=== PATIENT | female | born 1985 ===

== ENCOUNTER 2022-03-26 15:00 | Inpatient (IN) | payer OTHER ==
[2022-03-26] MEDS ORDERED: MAG HYDROX/AL HYDROX/SIMETH 30 ML CUP PO PRN (15:44)
[2022-03-26] MEDS ORDERED: HALOPERIDOL LACTATE 5 MG/ML 1 ML VIAL IM PRN (15:44)
[2022-03-26] MEDS ORDERED: ACETAMINOPHEN TAB 325 MG TAB PO PRN (15:44)
[2022-03-26] MEDS ORDERED: MAGNESIUM HYDROXIDE 2,400 MG/10 ML CUP PO PRN (15:44)
[2022-03-26] MEDS ORDERED: LORazepam 2 MG/ML INJ IM PRN (15:48)
[2022-03-26] MEDS ORDERED: haloperidoL 5 MG TAB PO PRN (15:48)
[2022-03-26 17:44] VITALS: BP 104/69; PULSE 76; RESP 16; TEMP 97.4
[2022-03-26] MEDS: LORazepam 1 MG TAB PO PRN (21:46)
--- NOTE | 2022-03-27 01:15 | P.MDCNMH ---
History of Present Illness H&P Date: 03/26/22 Chief Complaint: medical eval 36 year old female with chronic anemia patient reports social stresses going through divorce , denies any suicidal or homicidal ideation. she was transferred to us from another facility where she was petitioned court order due to acute psychosis . she denies any medical history or current medical concerns per RN , she is having heavy menestrual bleeding blood work at the other facility , showed microcytic anemia otherwise was unremarkable. patient otherwise asymptomatic admits to smoking but denies drugs or alcohol . Review of Systems Pertinent positives as noted in HPI. All other systems were reviewed and are negative Past Medical History - Past Family History family Family Medical History: No Reported History Medications and Allergies Allergies Allergy/AdvReac Type Severity Reaction Status Date / Time Penicillins Allergy Unknown Verified 03/26/22 15:44 Physical Exam Vitals: Vital Signs Temp Pulse Resp BP Pulse Ox 03/26/22 16:41 97.4 F L 76 16 104/69 99 Intake and Output 03/26/22 03/26/22 03/27/22 14:59 22:59 06:59 Other: Weight 49.8 kg Constitutional: No acute distress, conversant, pleasant Eyes: Anicteric sclerae, moist conjunctiva, Pupils equal round reactive to light ENMT: NC/AT Oropharynx clear, no erythema, or exudates Neck: Supple, FROM, no masses, or JVD No carotid bruits No thyromegaly Lungs: Clear to auscultation Clear to percussion Normal respiratory effort, no accessory muscle use Cardiovascular: Heart regular in rate and rhythm, No murmurs, gallops, or rubs No peripheral edema Skin: Normal temperature, tone, texture, turgor No induration No subcutaneous nodules No rash, lesions No ulcers Extremities: No digital cyanosis No clubbing Pedal pulses intact and symmetrical Radial pulses intact and symmetrical No calf tenderness Psychiatric: Alert and oriented to person, place and time Neuro Muscles Strength 5/5 in all 4 extremities Sensation to light touch grossly present throughout Cranial nerves II-XII grossly intact No focal sensory deficits Cranial Nerve Examination - Cranial Nerves Cranial Nerve II- Optic: Intact Cranial Nerve III- Oculomotor: Intact Cranial Nerve IV- Trochlear: Intact Cranial Nerve V- Trigeminal: Intact Cranial Nerve - Abducens: Intact Cranial Nerve VII- Facial: Intact Cranial Nerve VIII- Auditory: Intact Cranial Nerve IX- Glossopharyngeal: Intact Cranial Nerve X- Vagus: Intact Cranial Nerve XI- Accessory: Intact Cranial Nerve XII- Hypoglossal: Intact Assessment and Plan Assessment: Acute psychosis Delusional paranoia Management per psych Acute on chronic microcytic anemia Per our and patient having heavy menstrual bleeding Patient is symptomatically Monitor hemoglobin Check iron studies Initiate iron replacement therapy by mouth Follow-up morning labs Thank you for allowing us to participate in the care of this patient. We will follow peripherally. Do not hesitate to contact us with questions. Someone can be reached from the [facility] hospitalist group at all hours of the day at [phone].
[2022-03-27] MEDS: NICOTINE 14MG/24HR PATCH TRANSDERM SCH (08:37)
[2022-03-27] MEDS: FERROUS SULFATE 325 MG TAB PO SCH ×3 (08:37→17:50)
[2022-03-27] MEDS ORDERED: SERTRALINE 100 MG TAB PO SCH (09:00)
[2022-03-27 11:14] LABS: Anisocytosis Slight; Basophils % (A) 1 %; Eosinophils # (A) 0.1 k/uL (0-0.7); Eosinophils % (A) 3 %; HCT 30.1 % (34.0-46.0); HGB 9.2 gm/dL (11.4-16.0); Hypochromasia Marked; Lymphocytes # (A) 0.9 k/uL (1.0-4.8); Lymphocytes % (A) 30 %; MCH 23.4 pg (25.0-35.0); MCHC 30.7 g/dL (31.0-37.0); MCV 76.4 fL (80.0-100.0); Mean Platelet Volume 7.6; Microcytosis Slight; Monocytes # (A) 0.2 k/uL (0-1.0); Monocytes % (A) 8 %; Neutrophils # (A) 1.7 k/uL (1.3-7.7); Neutrophils % (A) 56 %; Platelet Count 297 k/uL (150-450); RBC 3.94 m/uL (3.80-5.40); RDW 16.7 % (11.5-15.5); WBC 3.1 k/uL (3.8-10.6)
[2022-03-27 11:29] LABS: ALT 15 U/L (4-34); AST 20 U/L (14-36); African American GFR (CKD) >90 (>60 ml/min/1.73 sqM); Albumin 4.2 g/dL (3.5-5.0); Alkaline Phosphatase 50 U/L (38-126); Anion Gap 7 mmol/L; Bilirubin, Delta 0.1 mg/dL (0.0-0.2); Bilirubin,Unconjugated 0.1 mg/dL (0.0-1.1); Blood Urea Nitrogen 16 mg/dL (7-17); Calcium 9.2 mg/dL (8.4-10.2); Carbon Dioxide 30 mmol/L (22-30); Chloride 103 mmol/L (98-107); Glucose 75 mg/dL (74-99); Non-African American GFR(CKD) 90 (>60 ml/min/1.73 sqM); Sodium 140 mmol/L (137-145); Total Bilirubin 0.2 mg/dL (0.2-1.3); Total Protein 6.8 g/dL (6.3-8.2)
--- NOTE | 2022-03-27 12:23 | P.HP ---
Psychiatric H&P - . H&P Date: 03/27/22 History & Physical: Allergies Allergy/AdvReac Type Severity Reaction Status Date / Time Penicillins Allergy Unknown Verified 03/26/22 15:44 Vital Signs Temp 97.4 F L 03/26/22 16:41 Pulse 76 03/26/22 16:41 Resp 16 03/26/22 16:41 BP 104/69 03/26/22 16:41 Pulse Ox 99 03/26/22 16:41 FiO2 Intake & Output 03/26/22 03/27/22 03/27/22 18:59 06:59 18:59 Weight 49.8 kg 49.8 kg Laboratory Last Values WBC 3.1 k/uL (3.8-10.6) L 03/27/22 10:16 RBC 3.94 m/uL (3.80-5.40) 03/27/22 10:16 Hgb 9.2 gm/dL (11.4-16.0) L 03/27/22 10:16 Hct 30.1 % (34.0-46.0) L 03/27/22 10:16 MCV 76.4 fL (80.0-100.0) L 03/27/22 10:16 MCH 23.4 pg (25.0-35.0) L 03/27/22 10:16 MCHC 30.7 g/dL (31.0-37.0) L 03/27/22 10:16 RDW 16.7 % (11.5-15.5) H 03/27/22 10:16 Plt Count 297 k/uL (150-450) 03/27/22 10:16 MPV 7.6 03/27/22 10:16 Neutrophils % 56 % 03/27/22 10:16 Lymphocytes % 30 % 03/27/22 10:16 Monocytes % 8 % 03/27/22 10:16 Eosinophils % 3 % 03/27/22 10:16 Basophils % 1 % 03/27/22 10:16 Neutrophils # 1.7 k/uL (1.3-7.7) 03/27/22 10:16 Lymphocytes # 0.9 k/uL (1.0-4.8) L 03/27/22 10:16 Monocytes # 0.2 k/uL (0-1.0) 03/27/22 10:16 Eosinophils # 0.1 k/uL (0-0.7) 03/27/22 10:16 Basophils # 0.0 k/uL (0-0.2) 03/27/22 10:16 Hypochromasia Marked 03/27/22 10:16 Anisocytosis Slight 03/27/22 10:16 Microcytosis Slight 03/27/22 10:16 Sodium 140 mmol/L (137-145) 03/27/22 10:16 Potassium 4.0 mmol/L (3.5-5.1) 03/27/22 10:16 Chloride 103 mmol/L (98-107) 03/27/22 10:16 Carbon Dioxide 30 mmol/L (22-30) 03/27/22 10:16 Anion Gap 7 mmol/L 03/27/22 10:16 BUN 16 mg/dL (7-17) 03/27/22 10:16 Creatinine 0.84 mg/dL (0.52-1.04) 03/27/22 10:16 Est GFR (CKD-EPI)AfAm >90 (>60 ml/min/1.73 sqM) 03/27/22 10:16 Est GFR (CKD-EPI)NonAf 90 (>60 ml/min/1.73 sqM) 03/27/22 10:16 Glucose 75 mg/dL (74-99) 03/27/22 10:16 Calcium 9.2 mg/dL (8.4-10.2) 03/27/22 10:16 Total Bilirubin 0.2 mg/dL (0.2-1.3) 03/27/22 10:16 Conjugated Bilirubin 0.0 mg/dL (0.0-0.3) 03/27/22 10:16 Unconjugated Bilirubin 0.1 mg/dL (0.0-1.1) 03/27/22 10:16 Delta Bilirubin 0.1 mg/dL (0.0-0.2) 03/27/22 10:16 AST 20 U/L (14-36) 03/27/22 10:16 ALT 15 U/L (4-34) 03/27/22 10:16 Alkaline Phosphatase 50 U/L (38-126) 03/27/22 10:16 Total Protein 6.8 g/dL (6.3-8.2) 03/27/22 10:16 Albumin 4.2 g/dL (3.5-5.0) 03/27/22 10:16 TSH 0.715 mIU/L (0.465-4.680) 03/27/22 10:16 Coronavirus (PCR) Not Detected (Not Detectd) 03/26/22 16:45 03/27/22 12:18 This psychiatric assessment on Sharron Arguello who is a 36-year-old female with history of depressive disorder and anxiety disorder Patient states that she has increased stress in her life and was having some suicidal thoughts She states that she came in for treatment and adjustment of medications She states that she recently finalized her divorce in January of this year, she also moved recently with her 2 daughters age 10 and 5 for home she has the full custody She stated that she is also dealing with the passing away of her sister and mother in 2018 She said that she has been seeing a counselor for about 8 months but has not seen any psychiatrist She has been prescribed Zoloft 100 mg a day as well as Adderall from her PCP She said that she wants to do better and wants to get on some more active help Patient denies any alcohol or substance use problems Mental Status Exam: General Appearance: Patient appears to be stated age, is neatly dressed and groomed and just had a shower Patient was seen in her room where she is sitting casually on her bed Orientation: she is alert, oriented to person, place, Behavior: Patient is friendly and cooperative Speech: Patient's speech is regular rate and rhythm Mood/Affect: Mood is euthymic Suicidality/Homicidality: Patient denies having any suicidal or homicidal ideation intent or plan. Perceptions: Patient denies any visual hallucinations and denies any auditory hallucinations. Though content: There is no evidence of paranoid delusional thought content, Thought process: Goal-directed sequential and logical Low self-esteem and confidence Memory and concentration: Grossly intact for the purposes of this session. Judgment and insight: Impaired Problem-solving skills are impaired Assessment: Adjustment disorder with mixed emotional features Major depressive disorder unspecified Anxiety disorder unspecified Plan: -Patient continues to meet criteria for inpatient psychiatric admission for symptom stabilization and safety. Patient has signed adult voluntary form and medication consent and was placed in patient's chart. -Medications: We will increase the Zoloft to 150 mg daily -When necessary Ativan and Haldol for agitation/aggression. -SW on board for discharge planning. Encouraged the patient to participate in milieu. Approximate length of stay will be 3-5 days[ Zhao Moncada M.D. 03/27/2022]
[2022-03-27] MEDS: LORazepam 1 MG TAB PO PRN ×2 (13:34→20:25)
[2022-03-27 17:43] LABS: % Iron Saturation 16.99 (12.00-45.00); Chol/HDL Ratio 3.91 Ratio; Ferritin 6.9 ng/mL (10.0-291.0); Iron 84 ug/dL (50-170); LDL Cholesterol,Calculated 118.5 mg/dL (0.0-131.0); Total Iron Binding Capacity 496 ug/dL (228-460)
[2022-03-28] MEDS: FERROUS SULFATE 325 MG TAB PO SCH ×3 (09:32→18:38)
[2022-03-28] MEDS: SERTRALINE 50 MG TAB PO SCH (09:33)
[2022-03-28] MEDS: NICOTINE 14MG/24HR PATCH TRANSDERM SCH (09:33)
--- NOTE | 2022-03-28 13:42 | P.PN ---
Progress Note - Text Progress Note Date: 03/28/22 Interval History: Patient was seen resting in bed and was directable and agreeable to speak with database report writer in the office. She expresses strong desire for discharge. She does admit that she has been expressing psychotic symptoms including feelings that people are following her in unmarked vehicles, placing bugs around her home to listen in on her conversations, and other generalized paranoid symptoms. The patient however did receive Haldol yesterday and is expressing a strong desire for discharge today to that she may be with her children. She is not reporting any suicidal or homicidal ideation, intention, and/or plan. She is not reporting any auditory or visual hallucinations. She is denying any paranoia or other delusions currently. The patient has remained primarily isolative to herself in her room and has not been attending any groups. She is agreeable to starting Zyprexa today in order to address her psychotic symptoms. We will hold the PRN Haldol. The patient is pressed that she has been feeling extreme amount of stress over the last few weeks prior to her psychotic symptoms manifesting. She recently moved into a new home, has been the primary knot bumper of her father, and has been also taking care of her children. She also was recently this past January. She was informed that these events may have contributed to her acute psychotic break. Mental Status Exam: General Appearance: Patient appears to be stated age is alert, directable, and cooperative. Behavior: Patient is calmly seated without any agitated behavior. Speech: Patient's speech is fluent and nonpressured. Mood/Affect: Mood is improving mildly, affect is congruent and constricted. Suicidality/Homicidality: Patient denies having any suicidal or homicidal ideation intent or plan. Perceptions: Patient denies any visual hallucinations and denies any auditory hallucinations Though content/process: There is no evidence of any delusional thought content today and thought process is linear and goal-directed. Memory and concentration: AOX3, grossly intact for the purposes of this session Judgment and insight: Improving mildly Vital Signs Temp 97.4 F L 03/26/22 16:41 Pulse 76 03/26/22 16:41 Resp 16 03/26/22 16:41 BP 104/69 03/26/22 16:41 Pulse Ox 99 03/26/22 16:41 FiO2 Intake & Output 03/27/22 03/28/22 03/28/22 18:59 06:59 18:59 Weight 49.8 kg Laboratory Results - Last 24 Hours 03/27/22 03/27/22 10:16 10:[address] Glu mg/dL 102 Hemoglobin A1c 5.6 Iron 84 TIBC 496 H % Saturation 16.99 Transferrin 354.0 Ferritin 6.9 L Triglycerides 107.00 Cholesterol 188.00 LDL Cholesterol, Calc 118.5 VLDL Cholesterol, Calc 21.40 HDL Cholesterol 48.10 Cholesterol/HDL Ratio 3.91 Assessment Acute psychotic episode Major depressive disorder Plan: -Patient continues to meet criteria for inpatient psychiatric admission for symptom stabilization and safety. Patient has signed adult voluntary form and medication consent and was placed in patient's chart. -At this time, it is likely that the Haldol that she received as needed was the one that was addressing her psychotic symptoms. We will schedule Zyprexa for this patient to ensure that her psychotic symptoms are treated in the outpatient setting as well. -Medications: Continue Zoloft 150 mg by mouth daily for depression/anxiety Start Zyprexa 10 mg by mouth at bedtime for acute psychosis -When necessary Ativan and Haldol for agitation/aggression. -NRT - nicotine patch -SW on board for discharge planning. Encouraged the patient to participate in milieu.
[2022-03-28] MEDS ORDERED: LORazepam 1 MG/0.5 ML VIAL IM PRN (18:42)
[2022-03-28 20:04] LABS: Appearance,Urine Clear (Clear); Bilirubin,Urine Negative (Negative); Blood,Urine Moderate (Negative); Color,Urine Light Yellow; Glucose,Urine (UA) Negative (Negative); Hyaline Casts,Urine 1 /lpf (0-2); Ketones,Urine Negative (Negative); Leukocyte Esterase,Urine Trace (Negative); Mucus,Urine Rare /hpf; Nitrite,Urine Negative (Negative); Protein,Urine Negative (Negative); RBC,Urine <1 /hpf (0-5); Specific Gravity,Urine 1.008 (1.001-1.035); Squamous Epithelial Cell,Urine 2 /hpf (0-4); Urobilinogen,Urine <2.0 mg/dL (<2.0); WBC,Urine 1 /hpf (0-5)
[2022-03-28] MEDS ORDERED: OLANZapine 5 MG TAB PO SCH (21:00)
[2022-03-28] MEDS ORDERED: OLANZapine 10 MG TAB PO SCH (21:00)
[2022-03-29] MEDS: SERTRALINE 50 MG TAB PO SCH (09:09)
[2022-03-29] MEDS: FERROUS SULFATE 325 MG TAB PO SCH ×2 (09:09→12:08)
[2022-03-29] MEDS: NICOTINE 14MG/24HR PATCH TRANSDERM SCH (09:10)
--- NOTE | 2022-03-29 14:04 | P.DS ---
Providers Date of admission: 03/26/22 16:11 Expected date of discharge: 03/29/22 Attending physician: Wilian Magaña MD Consults: 03/26/22 15:44 Consult Physician Routine Consulting Provider: Efrain Ag Consult Reason/Comments: med H&P Do you want consulting provider notified?: Yes Primary care physician: Stated None - Discharge Diagnosis(es) (1) Brief psychotic disorder Status: Acute Priority: High (2) Major depressive disorder Status: Acute Priority: High Hospital Course: Admission HPI: Initial psychiatric evaluation was completed by Dr Moncada on 03/27/2022 who wrote: "This psychiatric assessment on Sharron Arguello who is a 36-year-old female with history of depressive disorder and anxiety disorder Patient states that she has increased stress in her life and was having some suicidal thoughts She states that she came in for treatment and adjustment of medications She states that she recently finalized her divorce in January of this year, she also moved recently with her 2 daughters age 10 and 5 for home she has the full custody She stated that she is also dealing with the passing away of her sister and mother in 2017 She said that she has been seeing a counselor for about 8 months but has not seen any psychiatrist She has been prescribed Zoloft 100 mg a day as well as Adderall from her PCP She said that she wants to do better and wants to get on some more active help Patient denies any alcohol or substance use problems" Hospital course: Upon admission to the unit patient was initially presenting as guarded and only endorsing significant symptoms of depression and anxiety. She appeared to downplay her psychotic symptoms prior to this admission.. Patient was however directable and agreeable to commence treatment. Patient got along well with other patients on the unit and followed unit protocol. Patient was compliant with the medications and denied any side effects throughout hospital course. Patient was . continued on her Zoloft which was titrated to 150 mg daily to ad dress her depression and anxiety. When evaluated by this provider, the patient did admit to her significant psychotic symptoms that led her to be petitioned and certified in the first place. She did acknowledge that she felt that people were constantly following her as well as placing bugs in her home in order to listen in on her conversations. She did receive Haldol PRN which may have contributed in treating her psychotic symptoms. The patient was then agreeable to starting Zyprexa in order to manage her psychosis. The patient tolerated this medication well aside from mild feelings of "grogginess in the morning." On the day of discharge, the patient is not reporting any suicidal or homicidal ideation, intention, and/or delusions. The patient has been adherent with her medications and aside from the mild sedation in the morning, is not reporting any other significant side effects at this time. The patient was counseled at length on importance of medication adherence and appropriate outpatient follow- up. The patient does not have a significant substance abuse history however was counseled great length on abstaining from all substances including alcohol and marijuana. Prior to discharge, family meeting will be arranged by social science research assistant to answer questions and ensure safety. Mental status exam: General Appearance: Patient appears to be stated age is alert, pleasant, and cooperative. Patient is in no acute distress and has fair hygiene and grooming Behavior: Patient is calmly seated without any agitated behavior. Speech: Patient's speech is fluent and nonpressured. Mood/Affect: Patient reports their mood is "feeling ready to go", affect is congruent and euthymic. Suicidality/Homicidality: Patient denies having any suicidal or homicidal ideation intent or plan. Perceptions: Patient denies any auditory or visual hallucinations. Though content/process: There is no evidence of any delusional thought content and thought process is linear and goal-directed. She is future oriented. Memory and concentration: AOX3, grossly intact for the purposes of this session. Can spell "WORLD" backwards correctly. Judgment and insight: Improved Vital Signs Temp 97.4 F L 03/26/22 16:41 Pulse 76 03/26/22 16:41 Resp 16 03/26/22 16:41 BP 104/69 03/26/22 16:41 Pulse Ox 99 03/26/22 16:41 FiO2 Laboratory Results WBC 3.1 k/uL (3.8-10.6) L 03/27/22 10:16 RBC 3.94 m/uL (3.80-5.40) 03/27/22 10:16 Hgb 9.2 gm/dL (11.4-16.0) L 03/27/22 10:16 Hct 30.1 % (34.0-46.0) L 03/27/22 10:16 MCV 76.4 fL (80.0-100.0) L 03/27/22 10:16 MCH 23.4 pg (25.0-35.0) L 03/27/22 10:16 MCHC 30.7 g/dL (31.0-37.0) L 03/27/22 10:16 RDW 16.7 % (11.5-15.5) H 03/27/22 10:16 Plt Count 297 k/uL (150-450) 03/27/22 10:16 MPV 7.6 03/27/22 10:16 Neutrophils % 56 % 03/27/22 10:16 Lymphocytes % 30 % 03/27/22 10:16 Monocytes % 8 % 03/27/22 10:16 Eosinophils % 3 % 03/27/22 10:16 Basophils % 1 % 03/27/22 10:16 Neutrophils # 1.7 k/uL (1.3-7.7) 03/27/22 10:16 Lymphocytes # 0.9 k/uL (1.0-4.8) L 03/27/22 10:16 Monocytes # 0.2 k/uL (0-1.0) 03/27/22 10:16 Eosinophils # 0.1 k/uL (0-0.7) 03/27/22 10:16 Basophils # 0.0 k/uL (0-0.2) 03/27/22 10:16 Hypochromasia Marked 03/27/22 10:16 Anisocytosis Slight 03/27/22 10:16 Microcytosis Slight 03/27/22 10:16 Sodium 140 mmol/L (137-145) 03/27/22 10:16 Potassium 4.0 mmol/L (3.5-5.1) 03/27/22 10:16 Chloride 103 mmol/L (98-107) 03/27/22 10:16 Carbon Dioxide 30 mmol/L (22-30) 03/27/22 10:16 Anion Gap 7 mmol/L 03/27/22 10:16 BUN 16 mg/dL (7-17) 03/27/22 10:16 Creatinine 0.84 mg/dL (0.52-1.04) 03/27/22 10:16 Est GFR (CKD-EPI)AfAm >90 (>60 ml/min/1.73 sqM) 03/27/22 10:16 Est GFR (CKD-EPI)NonAf 90 (>60 ml/min/1.73 sqM) 03/27/22 10:16 Glucose 75 mg/dL (74-99) 03/27/22 10:[address] Glu mg/dL 102 03/27/22 10:16 Hemoglobin A1c 5.6 % (0.0-6.0) 03/27/22 10:16 Calcium 9.2 mg/dL (8.4-10.2) 03/27/22 10:16 Iron 84 ug/dL (50-170) 03/27/22 10:16 TIBC 496 ug/dL (228-460) H 03/27/22 10:16 % Saturation 16.99 (12.00-45.00) 03/27/22 10:16 Transferrin 354.0 mg/dL (204.0-354.0) 03/27/22 10:16 Ferritin 6.9 ng/mL (10.0-291.0) L 03/27/22 10:16 Total Bilirubin 0.2 mg/dL (0.2-1.3) 03/27/22 10:16 Conjugated Bilirubin 0.0 mg/dL (0.0-0.3) 03/27/22 10:16 Unconjugated Bilirubin 0.1 mg/dL (0.0-1.1) 03/27/22 10:16 Delta Bilirubin 0.1 mg/dL (0.0-0.2) 03/27/22 10:16 AST 20 U/L (14-36) 03/27/22 10:16 ALT 15 U/L (4-34) 03/27/22 10:16 Alkaline Phosphatase 50 U/L (38-126) 03/27/22 10:16 Total Protein 6.8 g/dL (6.3-8.2) 03/27/22 10:16 Albumin 4.2 g/dL (3.5-5.0) 03/27/22 10:16 Triglycerides 107.00 mg/dL (0.00-149.00) 03/27/22 10:16 Cholesterol 188.00 mg/dL (0.00-200.00) 03/27/22 10:16 LDL Cholesterol, Calc 118.5 mg/dL (0.0-131.0) 03/27/22 10:16 VLDL Cholesterol, Calc 21.40 mg/dL (5.00-40.00) 03/27/22 10:16 HDL Cholesterol 48.10 mg/dL (40.00-60.00) 03/27/22 10:16 Cholesterol/HDL Ratio 3.91 Ratio 03/27/22 10:16 TSH 0.715 mIU/L (0.465-4.680) 03/27/22 10:16 Urine Color Light Yellow 03/28/22 19:30 Urine Appearance Clear (Clear) 03/28/22 19:30 Urine pH 7.0 (5.0-8.0) 03/28/22 19:30 Ur Specific Power 1.008 (1.001-1.035) 03/28/22 19:30 Urine Protein Negative (Negative) 03/28/22 19:30 Urine Glucose (UA) Negative (Negative) 03/28/22 19:30 Urine Ketones Negative (Negative) 03/28/22 19:30 Urine Blood Moderate (Negative) H 03/28/22 19:30 Urine Nitrite Negative (Negative) 03/28/22 19:30 Urine Bilirubin Negative (Negative) 03/28/22 19:30 Urine Urobilinogen <2.0 mg/dL (<2.0) 03/28/22 19:30 Ur Leukocyte Esterase Trace (Negative) H 03/28/22 19:30 Urine RBC <1 /hpf (0-5) 03/28/22 19:30 Urine WBC 1 /hpf (0-5) 03/28/22 19:30 Ur Squamous Epith Cells 2 /hpf (0-4) 03/28/22 19:30 Hyaline Casts 1 /lpf (0-2) 03/28/22 19:30 Urine Mucus Rare /hpf (None) H 03/28/22 19:30 Coronavirus (PCR) Not Detected (Not Detectd) 03/26/22 16:45 Allergies Allergy/AdvReac Type Severity Reaction Status Date / Time Penicillins Allergy Unknown Verified 03/26/22 15:44 Impression: Brief psychotic episode Major depressive disorder Plan: -Continue with discharge today as patient has improved and stabilized psychiatrically and is not currently an imminent threat to herself and/or others. -Continue medications: Zoloft 150 mg by mouth daily for depression/anxiety Zyprexa 10 mg by mouth at bedtime for acute psychosis -Patient was counseled on the need for medication compliance and appropriate follow-up at mental health and also primary care for medical issues. Patient verbalized understanding and agreed. -Social work to arrange for and conduct family meeting to ensure safety upon discharge and answer any questions/concerns. Social work also to arrange for patients follow up appointments with the [facility] for [facility] care along with follow up with primary care provider. -Patient counseled on abstaining from recreational drugs and marijuana and alcohol. Was informed/educated on the adverse effects on their physical and mental health. Patient verbally agreed and understood. -Patient was instructed to return to the hospital or seek immediate medical care if their psychiatric or medical symptoms do worsen or reoccur. -Psychoeducation and supportive therapy provided to patient. Risks and benefits of pharmacological treatment versus the risks and benefits of nontreatment weight and discussed. Informed consent discussion held. Common side effects of psychotropics discussed such as, but not limited to headache, GI disturbance, sexual dysfunction, movement disorders, sedation, and orthostatic hypotension. Life threatening and blackbox warnings of prescribed medications also discussed. Potential risks of operating a vehicle or heavy machinery discussed with patient at length. Advised on importance of compliance and a reliable and responsible manner. Patient advised to review FDA consumer labeling of all medications prior to taking. Patient verbalized understanding of potential risks, and agrees with current treatment plan. Patient advised to medically contact physician/emergency personnel if any acute changes in condition occur. Patient Condition at Discharge: Stable Plan - Discharge Summary Discharge Rx Participant: No New Discharge Prescriptions: New Nicotine 14Mg/24Hr Patch [Habitrol] 1 patch TRANSDERM DAILY 15 Days patch Ferrous Sulfate [Iron (65 MG Elemental)] 325 mg PO TID-W/MEALS 30 Days tab Sertraline [Zoloft] 150 mg PO DAILY 30 Days tab OLANZapine [ZyPREXA] 10 mg PO HS 30 Days tab Discharge Medication List Ferrous Sulfate [Iron (65 MG Elemental)] 325 mg PO TID-W/MEALS 30 Days tab 03/29/22 [Rx] Nicotine 14Mg/24Hr Patch [Habitrol] 1 patch TRANSDERM DAILY 15 Days patch 03/29/22 [Rx] OLANZapine [ZyPREXA] 10 mg PO HS 30 Days tab 03/29/22 [Rx] Sertraline [Zoloft] 150 mg PO DAILY 30 Days tab 03/29/22 [Rx] Follow up Appointment(s)/Referral(s): intake,intake [Other] - 03/30/22 1:00 pm [facility] [NON-STAFF] - 1 Week Patient Instructions/Handouts: How to Stop Smoking (DC), Depression (DC) Activity/Diet/Wound Care/Special Instructions: Avoid the use of street drugs and alcohol. Take all prescriptions as prescribed. When you are in need of refills on your medications, please contact your medical provider and/or outpatient psychiatrist to have this done. Please go to scheduled outpatient appointment for aftercare treatment. If symptoms return or become worse, call the crisis line at and/or go to the nearest emergency room for evaluation. Discharge Disposition: HOME SELF-CARE
== END 2022-03-29 12:07 | disposition home or self-care (01) | DRG 885 ==
LOC: UNDOADMIN 16:11 → 3MHU 16:11
PROVIDERS: ADMIT Psychiatry & Neurology Psychiatry; ATTEND Psychiatry & Neurology Psychiatry
DX: F23 Brief psychotic disorder (principal); R45.851 Suicidal ideations; D62 Acute posthemorrhagic anemia; N92.0 Excessive and frequent menstruation with regular cycle; F32.9 Major depressive disorder, single episode, unspecified; F43.23 Adjustment disorder with mixed anxiety and depressed mood; F41.9 Anxiety disorder, unspecified; Z79.899 Other long term (current) drug therapy; Z20.822 Contact with and (suspected) exposure to COVID-19; Z88.0 Allergy status to penicillin
CPT/HCPCS: 80053; 80061; 81001; 82248; 82728; 83036; 83540; 83550; 84443; 85025; 87635